=== PATIENT | female | born 2000 | race Caucasian/White ===

== ENCOUNTER 2021-02-05 13:59 | Emergency (ER) | payer BC ==
[2021-02-05 15:59] LABS: BUN/CREATININE RATIO 16 (0-10)
[2021-02-05 16:13] LABS: HEMOGLOBIN 12.2 gm/dl (12.3-15.3); RED BLOOD COUNT 3.99 M/UL (4.00-5.10); WHITE BLOOD COUNT 7.7 K/UL (4.5-11.0)
[2021-02-07 23:10] LABS: CHLAMYDIA TRACHOMATIS, NAA Negative (Negative); NEISSERIA GONORRHOEAE, NAA Negative (Negative)
== END 2021-02-05 16:50 | disposition home or self-care (01) ==
LOC: ER1 13:59
PROVIDERS: Nurse Practitioner; Physician Assistant Medical
DX: R31.9 Hematuria, unspecified (principal)
CPT/HCPCS: 80053; 81001; 84703; 85025; 96374; 99283; J2405

== ENCOUNTER → 2021-07-27 | Outpatient (CLI) | payer BC | LOC: KOH-I 10:30 | DX: N39.0 Urinary tract infection, site not specified (principal); N13.30 Unspecified hydronephrosis | CPT/HCPCS: 76775; 76857 ==